=== PATIENT | female | born 1980 | race Caucasian/White ===

== ENCOUNTER 2021-08-28 17:04 | Emergency (ER) | payer MEDICAID, OTHER ==
[2021-08-28 17:14] VITALS: BP 134/70; PULSE 97; O2SAT 100
[2021-08-28] MEDS ORDERED: Norflex 60 MG/2 ML IM ONE (17:28)
[2021-08-28] MEDS ORDERED: Kenalog-40 IM ONE ×2 (17:28→17:37)
[2021-08-28] MEDS ORDERED: NORCO 5/325 MG PO ONE (17:29)
[2021-08-28] MEDS ORDERED: Kenalog-40 ONE (17:34)
[2021-08-28] MEDS ORDERED: Norflex 60 MG/2 ML ONE (17:34)
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
[2021-08-28] MEDS ORDERED: NORCO 5/325 MG ONE (17:46)
== END 2021-08-28 18:10 | disposition home or self-care (01) ==
LOC: ED 17:04
DX: S16.1XXA Strain of muscle, fascia and tendon at neck level, initial encounter (principal); Z72.0 Tobacco use; Z79.899 Other long term (current) drug therapy
CPT/HCPCS: 96372; 99284; J2360; J3301; A9270-GY